=== PATIENT | female | born 1940 | race Two or more races ===

== ENCOUNTER 2020-11-13 08:18 | Outpatient (CLI) | payer OTHER | END 2020-11-13 08:25 | disposition home or self-care (01) | LOC: RX STUDY 08:18 | PROVIDERS: ATTEND Otolaryngology | DX: K46.9 Unspecified abdominal hernia without obstruction or gangrene (principal); R13.14 Dysphagia, pharyngoesophageal phase; K22.8 Other specified diseases of esophagus ==